=== PATIENT | male | born 1995 | race Two or more races ===

== ENCOUNTER 2023-04-10 20:28 | Emergency (ER) | payer MEDICAID, OTHER ==
[~2023-04-10] VITALS: Ht 160 cm; Wt 65.3 kg
[2023-04-10 21:36] VITALS: BP 126/70; PULSE 79; RESP 16; O2SAT 99
[2023-04-10 22:43] LABS: Urine Bacteria NONE SEEN /hpf (None Seen); Urine Blood Negative /uL (Negative); Urine Clarity Clear (Clear); Urine Color Yellow (Yellow); Urine Mucus FEW (None Seen); Urine Protein, UAD TRACE (Negative); Urine WBC 9 /hpf (0 - 3)
== END 2023-04-11 02:25 | disposition left against medical advice (07) ==
LOC: ER 20:28
DX: R10.31 Right lower quadrant pain (principal); Z53.21 Procedure and treatment not carried out due to patient leaving prior to being seen by health care provider
CPT/HCPCS: 81001